=== PATIENT | female | born 2000 | race Caucasian/White ===

== ENCOUNTER 2020-12-27 10:15 | Inpatient (IN) | payer OTHER ==
[~2020-12-27] VITALS: Ht 157.5 cm; Wt 75.6 kg
[2020-12-27] VITALS (13 sets, daily range): BP systolic 104–138; BP diastolic 51–81
[~2020-12-27 10:15] MED LIST: VENLAFAXINE **XR** 75MG CAPSULE PO SCH
[2020-12-27] MEDS ORDERED: LIDOCAINE 1% MDV 20ML VIAL INFIL PRN (10:35)
[2020-12-27] MEDS ORDERED: RHOGAM 300 MCG (1500 IU) INJ (J2790) IM SCH (10:35)
[2020-12-27] MEDS ORDERED: OXYTOCIN DRIP 30 UNITS in IV 1 EA IV PRN (10:35)
[2020-12-27] MEDS ORDERED: VENL75CA2 PO (10:43)
[2020-12-27] MEDS ORDERED: PRENTAB9 PO (10:43)
[2020-12-27] MEDS ORDERED: QUET100T2 PO (10:43)
[2020-12-27 11:12] LABS: BASO % 0.2 % (0.0-1.0); EOS % 0.3 % (0.0-3.0); HEMATOCRIT 33.1 % (36.0-47.0); HEMOGLOBIN 11.2 g/dl (12.0-15.5); LYMPH # 2.7 10^3/uL (1.5-5.0); LYMPH % 22.3 % (24.0-44.0); MEAN CORPUSCULAR HEMOGLOBIN 31.1 pg (27.0-33.0); MEAN CORPUSCULAR HGB CONC 33.8 g/dl (32.0-36.5); MEAN CORPUSCULAR VOLUME 91.9 fl (80.0-96.0); MONO # 0.7 10^3/uL (0.0-0.8); MONO % 5.5 % (2.0-8.0); NEUTROPHILS # 8.6 10^3/uL (1.5-8.5); NEUTROPHILS % 71.2 % (36.0-66.0); PLATELET COUNT, AUTOMATED 232 10^3/uL (150-450)
[2020-12-27 11:38] LABS: THYROXINE (T4) 13.2 UG/DL (4.5-12.0)
[2020-12-27] MEDS ORDERED: PROMETHAZINE INJ 25 MG/ML VIAL (J2550) IV PRN (12:20)
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
[2020-12-27 13:39] LABS: AMPHETAMINES URINE REFLEX NEGATIVE (NEGATIVE); BARBITURATES URINE REFLEX NEGATIVE (NEGATIVE); BENZODIAZEPINES URINE REFLEX NEGATIVE (NEGATIVE); CANNABINOIDS URINE REFLEX NEGATIVE (NEGATIVE); COCAINE METABOLITE URINE REFLE NEGATIVE (NEGATIVE); METHADONE URINE REFLEX NEGATIVE (NEGATIVE); OPIATES URINE REFLEX NEGATIVE (NEGATIVE); PHENCYCLIDINE URINE REFLEX NEGATIVE (NEGATIVE)
[2020-12-27] MEDS: QUEtiapine FUMARATE 100 MG TAB PO SCH (22:09)
[2020-12-28] VITALS (21 sets, daily range): BP systolic 101–213; BP diastolic 55–77
--- NOTE | 2020-12-28 09:00 | IPNPDOC ---
Text Note Date of Service The patient was seen on 12/28/20. NOTE Patient seen this AM. Laina reports feeling well. She has minimal cramping. She is tolerating a regular diet with minimal nausea. She denies any fevers/chills, SOB, chest pain, dysuria, or vomiting. She had some nausea last night that resolved with phenergan. Vitals - VSS, afebrile, normotensive, non tachycardic General - AAOX3, sitting up in bed, pleasant and conversant, NAD Extremities - No edema Pelvic - deferred. Continue with cytotec dosing as prescribed. Will place next dose vaginally at ~1200. All patient questions answered. Den Quigley, I+O Den MARIA, I+O Laboratory Tests 12/27/20 10:50 Vital Signs Date Time Temp Pulse Resp B/P (MAP) Pulse Ox O2 Delivery O2 Flow Rate FiO2 12/28/20 08:16 96.8 89 16 117/55 (75) Room Air ZOILA HUFF DO Dec 28, 2020 09:00
[2020-12-28] MEDS: ACETAMINOPHEN 500 MG TAB PO PRN ×2 (11:06→19:07)
--- NOTE | 2020-12-28 11:07 | IPNPDOC ---
Text Note Date of Service The patient was seen on 12/28/20. NOTE Laina reports feeling well. Denies bleeding, cramping, fevers/chills, n/v. Chaperoned by RN Vitals - VSS, afebrile, normotensive, non tachycardic General - AAOX3, sitting up in bed, NAD Pelvic - Normal external genitalia. Cervix cl/thick/high, posterior. 400mcg misoprostol placed vaginally in the posterior fornix. Minimal progress thus far. Continue current management. All questions answered. Edward MARIA,Den, I+O VS, Den, I+O Vital Signs Date Time Temp Pulse Resp B/P (MAP) Pulse Ox O2 Delivery O2 Flow Rate FiO2 12/28/20 11:02 98.3 86 16 115/70 (85) Room Air ZOILA HUFF DO Dec 28, 2020 11:07
[2020-12-28] MEDS: VENLAFAXINE **XR** 75MG CAPSULE PO SCH (12:31)
--- NOTE | 2020-12-28 16:46 | IPNPDOC ---
Text Note Date of Service The patient was seen on 12/28/20. NOTE Presented to room for assessment of progress. Laina reports feeling well and denies any complaints. She is ambulating, voiding, tolerating a regular diet, and denies any n/v, fevers/chills, or pain. Chaperoned by RN Vitals - VSS, afebrile, normotensive, non tachycardic Cervix: cl/thick/high, posterior. 800mcg PV misoprostol placed in posterior fornix. Laina continues to feel well. Cervix remains closed and firm. If there is no response after this last dose, may consider laminaria placement. All patient questions answered. Edward VS,Den, I+O VS, Den, I+O Vital Signs Date Time Temp Pulse Resp B/P (MAP) Pulse Ox O2 Delivery O2 Flow Rate FiO2 12/28/20 11:56 86 102/58 (73) 12/28/20 11:02 98.3 16 Room Air ZOILA HUFF DO Dec 28, 2020 16:46
[2020-12-28] MEDS: QUEtiapine FUMARATE 100 MG TAB PO SCH (22:01)
[2020-12-28] MEDS: BUTORPHANOL 2 MG/ML INJ (J0595) IV PRN (22:01)
[2020-12-28] MEDS: LR 1,000 ML IV SCH (22:22)
[2020-12-29] VITALS (49 sets, daily range): BP systolic 84–135; BP diastolic 51–81
[2020-12-29] MEDS: BUTORPHANOL 2 MG/ML INJ (J0595) IV PRN ×2 (03:20→07:23)
[2020-12-29] MEDS: LR 1,000 ML IV SCH ×3 (06:08→15:09)
[2020-12-29 06:58] LABS: HEMATOCRIT 35.2 % (36.0-47.0); HEMOGLOBIN 11.6 g/dl (12.0-15.5); MEAN CORPUSCULAR VOLUME 94.1 fl (80.0-96.0); PLATELET COUNT, AUTOMATED 218 10^3/uL (150-450); RED BLOOD COUNT 3.74 10^6/uL (4.00-5.40); WHITE BLOOD COUNT 20.4 10^3/uL (4.0-10.0)
[2020-12-29] MEDS ORDERED: KETOROLAC 30 MG/ML 1ML VIAL IV SCH (09:00)
[2020-12-29] MEDS: VENLAFAXINE **XR** 75MG CAPSULE PO SCH (09:03)
[2020-12-29] MEDS ORDERED: FENTANYL 2MCG/ML ROPIVACAINE 0.2% IN 0.9% NACL 100ML IVBAG As Ordered ONE (09:36)
--- NOTE | 2020-12-29 09:36 | IPNPDOC ---
Obstetrical Progress Note Date of Service Dec 29, 2020 Subjective 20 yo at 20w2d admitted for IUFD. She reports that she is starting to feel more contractions and cramping. Dr. Sweeney is also at the bedside as we discussed that plan with the patient and her family. Cervical exam remains thick, firm, closed, and posterior. Recommended for placing laminaria with vaginal packing and continuing cytotec. Discussed options for pain management WEB PROGRAMMER pump versus epidural and recommended to discuss these options further with anesthesia. She has no further concerns or complaints at this time. All questions were answered. Objective Vital Signs Date Time Temp Pulse Resp B/P (MAP) Pulse Ox O2 Delivery O2 Flow Rate FiO2 12/29/20 07:50 14 12/29/20 07:09 98.0 72 104/56 (72) 12/28/20 22:01 Room Air Cervical exam closed, long, thick, high, and posterior 3 laminaria were placed within the cervical os, 2 size medium and 1 size small at 0850. Vaginal packing was placed. Patient tolerated procedure well. Assessment and Plan Additional Comments Consultation was given with Dr. Snow, who recommended for continuing cytotec with laminaria. Dr. Sweeney recommends for IV toradol, as an adjunct to IV pain medication. Recommended for patient to have consultation with anesthesia regarding pain options: WEB PROGRAMMER pump versus epidural Dr. Sweeney was at the bedside to further discuss plan with patient for possible D&E procedure. All questions were answered. MARCUS LAMBERT CNM Dec 29, 2020 09:01
[2020-12-29] MEDS ORDERED: diphenhydrAMINE 50MG/ML VIAL (J1200) IV PRN (10:05)
[2020-12-29] MEDS ORDERED: EPIDURAL/PCA KEYS XX PRN (10:05)
[2020-12-29] MEDS ORDERED: ePHEDrine SULFATE 25 MG/5 ML(5MG/ML) SYRINGE IV PRN (10:05)
[2020-12-29] MEDS ORDERED: EPIDURAL COMMENT XX SCH (10:05)
[2020-12-29] MEDS ORDERED: ONDANSETRON 4MG/2ML VIAL IV PRN (10:05)
[2020-12-29] MEDS ORDERED: NALOXONE INJ 0.4MG/1ML VIAL (J2310 PER 1MG) IV PRN (10:05)
[2020-12-29] MEDS ORDERED: LACTATED RINGER'S 1000 ML IV PRN (10:05)
[2020-12-29] MEDS ORDERED: FENTANYL/ROPIVACAINE/NACL BAG 100 ML EPIDURAL SCH (10:05)
[2020-12-29] MEDS ORDERED: REFRIGERATOR IV KEYS XX PRN (10:05)
[2020-12-29] MEDS ORDERED: ACETAMINOPHEN 500 MG TAB PO PRN (16:45)
[2020-12-29] MEDS ORDERED: IBUPROFEN 800 MG TAB PO PRN (16:45)
[2020-12-29] MEDS ORDERED: DIBUCAINE 1% OINTMENT 30GM TOP PRN (16:45)
[2020-12-29] MEDS ORDERED: IBUPROFEN 600MG TAB PO PRN (16:45)
[2020-12-29] MEDS ORDERED: ACETAMINOPHEN TAB 650MG DOSE (2X325MG) PO PRN (16:45)
[2020-12-29] MEDS ORDERED: DOCUSATE SODIUM 100MG CAPSULE PO PRN (16:45)
--- NOTE | 2020-12-29 17:05 | DNPDOC ---
[facility] Delivery Note Delivery Note DATE OF DELIVERY: 12/29/20 PREDELIVERY DIAGNOSIS: demise POST DELIVERY DIAGNOSIS: Delivered. PROCEDURE: Induction of labor with cytotec and lamineria. Vaginal delivery. Placental biopsy. COLLEGE BASKETBALL COACH: Dr. Corey Aguilera DO ANESTHESIA: Epidural. ESTIMATED BLOOD LOSS: 50 mL. FINDINGS: grossly normal second trimester appearing fetus with exception of abnormal calvarium contour. Amniotic fluid had brown tinge. Grossly normal second trimester appearing placenta and cord. DELIVERY SUMMARY: Patient was examined to determine progress after approx 8h of lamineria placement. On exam it was noted that amniotic membranes were protruding into the vagina, the lamineria was displaced, and parts were palpable. The lamineria was removed and counted and was consistent with the 3 sticks placed. The membranes were ruptured and brown fluid was noted. The patient pushed and the baby was delivered in-tact. The cord was clamped and cut. On examination the baby was a grossly normal second trimester appearing fetus with exception of abnormal calvarium contour. The placenta was palpated in the vagina and delivered with patient pushing. Grossly normal second trimester appearing placenta and cord was noted. Pitocin was administered and vaginal bleeding was scant. There were no lacerations. A placenta biopsy was performed adjacent to the umbilical cord and sent for microarray. The fetus was sent for gross analysis without autopsy. The placenta was sent for pathology. The sponge, lap and needle counts were correct. There were no complications. COREY AGUILERA DO Dec 29, 2020 17:05
--- NOTE | 2020-12-29 19:44 | OBDS ---
[facility] Obstetrical Discharge Sum. Obstetrical Discharge Summary Date: Dec 29, 2020 A/P, Post Course List any complications Ms. Mcintosh is a 20 yo at 20+0 weeks gestation by last menstrual period consistent with a 9+2 week ultrasound who was diagnosed with a demise earlier this week when heart tones could not be found during a routine appointment. A subsequent formal obstetric ultrasound on 25Dec2020 confirmed fe marva demise, with her fetus measuring 17+1 weeks gestation by composite measurements. She was induced with lamineria and cytotec and delivered a grossly normal second trimester appearing fetus with exception of irregularities of the calvarium. The placenta also appeared normal but the amniotic fluid was notably discolored. Per the wishes of Ms. Mcintosh and her placenta biopsy was taken and sent for microarray and the fetus sent for gross pathology without autopsy. She also made arrangements with bereavement services for transport of the baby following pathologic analysis. Ms. Mcintosh was evaluated for potential causes of demise and was found to have a normal CBC, urine drug screen, hepatitis B, and syphillis screening. Her antiphospholipid antibody and parvovirus testing remained pending on discharge. She did have an elevated T4 but her TSH was normal. On discharge she had scant vaginal bleeding, was tolerating solids, voiding spontaneously, and her pain was well controlled. She had no signs or symptoms of infection. She was educated on routine return precautions. At her follow up appointment I plan to repeat her TSH and T4 testing and treat as appropriate. FREIDA AGUILERA DO Dec 29, 2020 19:44
[2020-12-30] MEDS ORDERED: PRENATAL VITAMINS CHEWABLE TABLET PO SCH (09:00)
[2020-12-31 11:39] LABS: DRVV SCREEN 49.6 SEC
[2020-12-31 11:42] LABS: PTT LUPUS TYPE ANTICOAG SCREEN 1.3 (0-1.2)
[2020-12-31 11:50] LABS: DRVV CONFIRM 37.7 SEC; LUPUS CONFIRM RATIO 1.1
[2020-12-31 11:51] LABS: NORMALIZED RATIO 1.18 (0.00-1.20)
[2021-01-01 04:07] LABS: ANTI PARVO VIRUS LEVEL IGG 5.8 index (0.0-0.8); ANTI PARVO VIRUS LEVEL IgM 0.1 index (0.0-0.8); BETA-2 GLYCOPROTEIN I ABY IGA <9 (0-25); BETA-2 GLYCOPROTEIN I ABY IGG <9 (0-20); BETA-2 GLYCOPROTEIN I ABY IGM <9 (0-32); CARDIOLIPIN IGA ANTIBODY <9 APL U/mL (0-11); CARDIOLIPIN IGG ANTIBODY <9 GPL U/mL (0-14); CARDIOLIPIN IGM ANTIBODY <9 MPL U/mL (0-12)
== END 2020-12-29 21:00 | disposition home or self-care (01) | DRG 779 ==
LOC: M LDI 10:15
PROVIDERS: ADMIT Obstetrics & Gynecology; ATTEND Obstetrics & Gynecology
PROC: 3E0P7GC Introduction of Other Therapeutic Substance into Female Reproductive, Via Natural or Artificial Opening (ICD-10-PCS; principal; 2020-12-27)
DX: O02.1 Missed abortion (principal); Z3A.20 20 weeks gestation of pregnancy

== ENCOUNTER 2020-12-31 11:44 | Emergency (ER) | payer OTHER ==
[~2020-12-31] VITALS: Ht 154.9 cm; Wt 72.7 kg
[~2020-12-31 11:44] MED LIST changes: +PRENTAB9 PO; +QUET100T2 PO; +VENL75CA2 PO; -VENLAFAXINE **XR** 75MG CAPSULE PO SCH
[2020-12-31 13:07] LABS: BASO % 0.2 % (0.0-1.0); EOS # 0.1 10^3/uL (0.0-0.5); EOS % 0.4 % (0.0-3.0); HEMATOCRIT 36.4 % (36.0-47.0); HEMOGLOBIN 12.2 g/dl (12.0-15.5); LYMPH # 1.7 10^3/uL (1.5-5.0); LYMPH % 12.4 % (24.0-44.0); MEAN CORPUSCULAR HEMOGLOBIN 31.5 pg (27.0-33.0); MEAN CORPUSCULAR HGB CONC 33.5 g/dl (32.0-36.5); MEAN CORPUSCULAR VOLUME 94.1 fl (80.0-96.0); MONO # 0.7 10^3/uL (0.0-0.8); MONO % 5.2 % (2.0-8.0); NEUTROPHILS % 80.9 % (36.0-66.0); PLATELET COUNT, AUTOMATED 244 10^3/uL (150-450); RED BLOOD COUNT 3.87 10^6/uL (4.00-5.40); WHITE BLOOD COUNT 13.6 10^3/uL (4.0-10.0)
[2020-12-31 13:29] LABS: BLOOD UREA NITROGEN 6 MG/DL (7-18); CALCIUM LEVEL 8.7 MG/DL (8.5-10.1); CARBON DIOXIDE LEVEL 25 MEQ/L (21-32); CHLORIDE LEVEL 108 MEQ/L (98-107); CREATININE FOR GFR 0.53 MG/DL (0.55-1.30); GLOMERULAR FILTRATION RATE > 60.0 (>60); GLUCOSE, FASTING 79 MG/DL (70-100); POTASSIUM SERUM 3.7 MEQ/L (3.5-5.1); SODIUM LEVEL 143 MEQ/L (136-145)
[2020-12-31] MEDS ORDERED: METHYLERGONOVINE MALEATE 0.2 MG TAB PO ONE (15:00)
[2020-12-31] MEDS ORDERED: METH0.2T53 PO (15:01)
[2020-12-31] MEDS ORDERED: DOXY1CAP62 PO (15:01)
[2020-12-31 15:39] VITALS: BP 126/75
--- NOTE | 2020-12-31 16:07 | IPNPDOC ---
Text Note Date of Service The patient was seen on 12/31/20. NOTE 20 yo s/p uncomplicated of 17 week demise on Tuesday presented to the ER today after passing a clot at home and then noticing a large protrusion of "tissue" coming from her vagina. She denies any fevers at home. She has been eating and drinking without difficulty. She has had mild cramping but no severe pain. She also denies any dysuria, vomiting, diarrhea, or constipation. Chaperoned by CASHIER GREETER Vitals - Vitals stable. HR 100s, afebrile, normotensive General - AAOX3, sitting up in bed, pleasant and conversant, NAD Abdomen - Uterine fundus firm at U-3. No fundal tenderness Pelvic - Tissue protruding from the vagina. Removed with ring forceps. No active bleeding. Sent to pathology review. A sterile speculum was then inserted into the vagina. Large amount of tissue protruding from the cervical os. This was also removed with ring forceps and sent to pathology for review. Cervix hemostatic after removal. Speculum removed. Bedside TAUS: EMS 1.4cm at thickest portion. No color flow or vascularity seen on US. No free pelvic fluid or adnexal abnormalities. Labs: 13.6>12.2/36.4<244 WBC count decreased from 20.1 on 28Dec2020 from pre delivery. Likely retained placental fragment. No evidence of further retained products on bedside TAUS. No active bleeding. No evidence of infection. Will follow up on pathology of tissue removed. Will give prophylactic course of doxycycline and methergine series. She will follow up in the office with me on Tuesday. Return to care sooner for fevers/chills, SOB, chest pain, dysuria, heavy vaginal bleeding, or any other urgent concerns. All questions answered. 40 minutes of patient care DO CROW Darnell Fishbone, I+O Den MARIA, I+O Laboratory Tests 12/31/20 12:40 Vital Signs Date Time Temp Pulse Resp B/P (MAP) Pulse Ox O2 Delivery O2 Flow Rate FiO2 12/31/20 15:39 98.1 117 17 126/75 (92) 98 Room Air ZOILA HUFF DO Dec 31, 2020 16:07
--- NOTE | 2021-01-01 07:18 | ECGEPIP ---
[facility] - ED Test Date: 2020-12-31 Pat Name: COURTNEY BLISS Department: Room: - Gender: Female Director Learning: BARBARA : 2000 Requested By: Jill Reynoso Order Number: [id number] Reading MD: Bi Encarnacion Measurements Intervals Castell Rate: 83 P: 8 TN: 126 QRS: 72 QRSD: 76 T: 18 QT: 348 QTc: 408 Interpretive Statements Normal sinus rhythm POOR R WAVE PROGRESSION NONSPECIFIC T WAVE ABNORMALITY(S) NO PRIORS FOR COMPARISON Electronically Signed on 01-01-2021 7:18:27 EDT by Bi Encarnacion
== END 2020-12-31 15:42 | disposition home or self-care (01) ==
LOC: M ED 11:44
DX: O73.1 Retained portions of placenta and membranes, without hemorrhage (principal); F41.9 Anxiety disorder, unspecified; F33.9 Major depressive disorder, recurrent, unspecified; F17.200 Nicotine dependence, unspecified, uncomplicated; Z79.899 Other long term (current) drug therapy; Z88.8 Allergy status to other drugs, medicaments and biological substances

== ENCOUNTER 2021-03-04 22:30 | Observation (INO) | payer OTHER ==
[~2021-03-04] VITALS: Ht 157.5 cm; Wt 75.4 kg
[~2021-03-04 22:30] MED LIST changes: +DOXY1CAP62 PO; +METH0.2T53 PO
[2021-03-04 23:14] LABS: HEMATOCRIT 39.7 % (36.0-47.0); HEMOGLOBIN 13.1 g/dl (12.0-15.5); MEAN CORPUSCULAR HEMOGLOBIN 30.1 pg (27.0-33.0); MEAN CORPUSCULAR VOLUME 91.3 fl (80.0-96.0); PLATELET COUNT, AUTOMATED 318 10^3/uL (150-450); RED BLOOD COUNT 4.35 10^6/uL (4.00-5.40)
[2021-03-04] MEDS ORDERED: CHARCOAL ACTIVATED LIQUID 25 GM/120 ML BTL PO ONE (23:15)
[2021-03-04] MEDS ORDERED: ONDANSETRON 4MG/2ML VIAL IV ONE (23:15)
[2021-03-04] MEDS ORDERED: NS 1,000 ML IV ONE (23:15)
[2021-03-04 23:51] LABS: RSV AMPLIFICATION NEGATIVE (NEGATIVE)
--- NOTE | 2021-03-04 23:59 | HPEPDOC ---
[facility] Medical History & Physical Date of Admission Mar 04, 2021 Date of Service: Mar 04, 2021 History and Physical CHIEF COMPLAINT: Suicide attempt with drug overdose HISTORY OF PRESENT ILLNESS: 20-year-old female history of anxiety/depression, PTSD, previous suicide attempt, recent miscarriage comes emergency department due to suicide attempt by overdose on Effexor. Patient tells me that she has periods where she feels something takes control and made her take the pills. She says she feels better and that she doesn't want to . She tells me that her helped her home to try to vomit as much of the pills is possible she is not sure if she got everything. She is trying to take activated charcoal right now. She says that she has had previous suicide attempts the last time she tried to look into assisted suicide attempt to dehydrate herself by not drinking any fluids for 7 days. Hospital service was asked to admit the patient for observation on telemetry monitoring for 12 hours until patient is able to be admitted to the inpatient mental health unit. Patient denies any chest pain or shortness of br eath she denies any nausea or vomiting denies any fevers or chills denies abdominal pain tells me she feels back to her normal self now. PAST MEDICAL/SURGICAL HISTORY: History of suicide attempt Miscarriage December 2020 Anxiety/depression PTSD Right wrist surgery Right clavicle surgery SOCIAL HISTORY: Endorses drinking SOCIALLY Endorses using electronic cigarettes Endorses smoking cannabis after her miscarriage FAMILY HISTORY: Reviewed and none contributory to this admission ALLERGIES: Please see below. REVIEW OF SYSTEMS: 10 point review of systems complete all negative otherwise stated in HPI HOME MEDICATIONS: Please see below. PHYSICAL EXAMINATION: Constitutional: Awake and alert, in no apparent distress ENT: Sclera are clear. Mucosa is moist. Respiratory: Lungs CTA bilaterally. No respiratory distress. Cardiovascular: RRR S1 and S2 are normal, no murmur Gastrointestinal: Abdomen is soft, non distended, non tender, BS present. Musculoskeletal: No lower extremity edema. RUE 5/5, LUE 5/5, BLE 5/5 Neurologic: No focal neurological deficit. Mental Status: A&O x3, tearful Skin: No visible rashes LABORATORY DATA: See below. IMAGING: See chart MICROBIOLOGY: Please see below. ASSESSMENT # Suicide attempt by Effexor overdose PLAN Per recommendations from poison control admit patient for observation with telemetry monitoring until a transfer to the psychiatric unit tomorrow. Patient was ordered charcoal which she is currently taking. Effexor and Seroquel will be held and to be continued when deemed appropriate by psychiatry. Sitter ordered. Morning team to discuss with psychiatry tomorrow to facilitate transfer to inpatient mental health unit. A [facility] Hospitalist Vital Signs Vital Signs Date Time Temp Pulse Resp B/P (MAP) Pulse Ox O2 Delivery O2 Flow Rate FiO2 03/04/21 22:30 98.2 125 14 137/83 (101) 97 Room Air Laboratory Data Labs 24H Laboratory Tests 2 03/04/21 22:34: Nucleated Red Blood Cells % (auto) 0.0 03/04/21 22:53: Coronavirus (COVID-19)(PCR) NEGATIVE, Influenza Type A (RT-PCR) NEGATIVE, Influenza Type B (RT-PCR) NEGATIVE, Respiratory Syncytial Virus (PCR) NEGATIVE CBC/BMP Laboratory Tests 03/04/21 22:34 Home Medications Scheduled Quetiapine Fumarate (Quetiapine Fumarate) 100 Mg Tablet, 100 MG PO QHS Venlafaxine HCl (Venlafaxine HCl ER) 75 Mg Cap.er.24h, 75 MG PO BID Allergies Coded Allergies: bupropion (Verified Adverse Reaction, Severe, HALLUCINATIONS, 12/27/20) RIP BECKETT MD Mar 04, 2021 23:59
[2021-03-05 00:05] LABS: ACETAMINOPHEN LEVEL < 2.0 UG/ML (10.0-30.0); ALBUMIN 3.8 GM/DL (3.2-5.2); ALT/SGPT 21 U/L (12-78); BILIRUBIN,DIRECT < 0.1 MG/DL (0.0-0.2); BILIRUBIN,TOTAL 0.4 MG/DL (0.2-1.0); BLOOD UREA NITROGEN 8 MG/DL (7-18); CALCIUM LEVEL 9.1 MG/DL (8.5-10.1); CARBON DIOXIDE LEVEL 28 MEQ/L (21-32); CHLORIDE LEVEL 111 MEQ/L (98-107); CREATININE FOR GFR 0.76 MG/DL (0.55-1.30); ETHYL ALCOHOL (ETHANOL) 0.094 % (0.000-0.010); GLOMERULAR FILTRATION RATE > 60.0 (>60); GLUCOSE, FASTING 87 MG/DL (70-100); POTASSIUM SERUM 3.8 MEQ/L (3.5-5.1); SALICYLATE LEVEL < 1.7 MG/DL (5.0-30.0); SODIUM LEVEL 144 MEQ/L (136-145); TOTAL PROTEIN 7.3 GM/DL (6.4-8.2)
[2021-03-05] MEDS ORDERED: VENL75CA2 PO (01:06)
[2021-03-05] MEDS ORDERED: QUET100T2 PO (01:06)
[2021-03-05] MEDS ORDERED: HOME MED LIST COMPLETE! XX SCH (01:10)
[2021-03-05 06:41] LABS: HEMATOCRIT 37.5 % (36.0-47.0); HEMOGLOBIN 12.3 g/dl (12.0-15.5); MEAN CORPUSCULAR HEMOGLOBIN 30.2 pg (27.0-33.0); MEAN CORPUSCULAR HGB CONC 32.8 g/dl (32.0-36.5); MEAN CORPUSCULAR VOLUME 92.1 fl (80.0-96.0); PLATELET COUNT, AUTOMATED 295 10^3/uL (150-450); RED BLOOD COUNT 4.07 10^6/uL (4.00-5.40); WHITE BLOOD COUNT 9.3 10^3/uL (4.0-10.0)
[2021-03-05 07:14] LABS: AMPHETAMINES LEVEL URINE NEGATIVE (NEGATIVE); BARBITURATES URINE NEGATIVE (NEGATIVE); BENZODIAZEPINES URINE NEGATIVE (NEGATIVE); CANNABINOIDS URINE POSITIVE (NEGATIVE); COCAINE METABOLITE URINE NEGATIVE (NEGATIVE); METHADONE URINE NEGATIVE (NEGATIVE); OPIATES URINE NEGATIVE (NEGATIVE); PHENCYCLIDINE URINE NEGATIVE (NEGATIVE)
[2021-03-05 07:17] LABS: ALBUMIN 3.3 GM/DL (3.2-5.2); ALT/SGPT 20 U/L (12-78); BILIRUBIN,TOTAL 0.5 MG/DL (0.2-1.0); BLOOD UREA NITROGEN 7 MG/DL (7-18); CALCIUM LEVEL 8.7 MG/DL (8.5-10.1); CARBON DIOXIDE LEVEL 23 MEQ/L (21-32); CHLORIDE LEVEL 113 MEQ/L (98-107); CREATININE FOR GFR 0.93 MG/DL (0.55-1.30); GLOMERULAR FILTRATION RATE > 60.0 (>60); GLUCOSE, FASTING 103 MG/DL (70-100); POTASSIUM SERUM 4.1 MEQ/L (3.5-5.1); SODIUM LEVEL 143 MEQ/L (136-145); TOTAL PROTEIN 6.7 GM/DL (6.4-8.2)
[2021-03-05 09:00] VITALS: BP 114/59
[2021-03-05] MEDS: ENOXAPARIN 40MG/0.4ML SYRINGE (J1650 PER 10MG) SC SCH (09:00)
--- NOTE | 2021-03-05 10:05 | IPN ---
PROGRESS NOTE DATE: 03/05/2021 SUBJECTIVE: Laina is seen on [address]. She spent 12 hours on TM and had no arrhythmias, she is now waiting for a Mental Health Unit bed. OBJECTIVE: GENERAL: She is resting comfortably, sleepy. HEART: Regular rhythm. ABDOMEN: Nontender. EXTREMITIES: No peripheral edema. NEUROLOGIC: Normal cranial nerve function and strength, and coordination. Telemetry with no arrhythmias. LABORATORY DATA: Lab work unremarkable. IMPRESSION: Suicide attempt by intentional overdose of Effexor. She is medically stable for inpatient Mental Health Unit. I have placed a consult for the covering psychiatrist. She could be transferred down whenever there is a bed available as she is currently medically stable.
[2021-03-05 14:00] VITALS: BP 106/56
[2021-03-05 16:55] VITALS: BP 135/77
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
--- NOTE | 2021-03-05 18:53 | ECGEPIP ---
[facility] - ED Test Date: 2021-03-04 Pat Name: COURTNEY BLISS Department: Room: [place] [address] Gender: Female Boiler Room Operator: GERALDINE : 2000 Requested By: BERNARD AUGUSTIN Order Number: [id number] Reading MD: Jill Reynoso Measurements Intervals [place] Rate: 91 P: 43 MS: 140 QRS: 79 QRSD: 82 T: 30 QT: 326 QTc: 400 Interpretive Statements Normal sinus rhythm with sinus arrhythmia increased rate 12/31/20 Electronically Signed on 03-05-2021 18:53:17 EDT by Jill Reynoso
[2021-03-05 20:05] VITALS: BP 119/72
[2021-03-05 21:15] VITALS: O2SAT 95
[2021-03-06 06:00] VITALS: BP 115/51
[2021-03-06] MEDS: ENOXAPARIN 40MG/0.4ML SYRINGE (J1650 PER 10MG) SC SCH (08:05)
--- NOTE | 2021-03-06 09:37 | DSES ---
DISCHARGE SUMMARY DATE OF ADMISSION: 03/04/2021 DATE OF DISCHARGE: / / PRINCIPAL DIAGNOSIS: Intentional overdose of Effexor. HISTORY: Patient was admitted to the Hospitalist Service. She took an intentional overdose of Effexor. HOSPITAL COURSE: She was on telemetry for an appropriate length of time with no arrhythmias and placed on med/surg bed. She is supposed to be going to the Inpatient Mental Health Unit, but there are currently no beds. She was seen by Dr. Russell of Psychiatry who agreed with need for inpatient mental health for depressive disorder, recurrent, severe with psychotic features as well as posttraumatic stress disorder, possible borderline personality disorder. CURRENT MEDICATIONS: Lovenox 40 mg subcu. LABORATORY DATA: CBC is normal today as are the electrolytes. DISPOSITION: She should be discharged to an Inpatient Mental Unit bed. Her Lovenox can be discontinued on discharge. Psychiatric medications per Psychiatry Service.
== END 2021-03-06 11:50 ==
LOC: M ED 22:30 → M ED INP 22:31 → INTOOBSV 22:31 → M MS5PR 03-05 09:00
PROVIDERS: ADMIT Family Medicine; ATTEND Family Medicine
DX: F32.3 Major depressive disorder, single episode, severe with psychotic features (principal); F43.10 Post-traumatic stress disorder, unspecified; F60.9 Personality disorder, unspecified; Z91.5 Personal history of self-harm; Z79.899 Other long term (current) drug therapy; Z88.8 Allergy status to other drugs, medicaments and biological substances; F17.290 Nicotine dependence, other tobacco product, uncomplicated
CPT/HCPCS: 36415; 80048; 80053; 80076; 80143; 80307; 82077; 84443; 85027; 87631; 93005; 96361; 96374; 99285; J2405

== ENCOUNTER 2021-03-06 11:21 | Inpatient (IN) | payer OTHER ==
[~2021-03-06] VITALS: Ht 157.5 cm; Wt 75.4 kg
[~2021-03-06 11:21] MED LIST changes: +DOXY-443 PO; -DOXY1CAP62 PO
[2021-03-06] MEDS ORDERED: ACETAMINOPHEN TAB 650MG DOSE (2X325MG) PO PRN (11:30)
[2021-03-06] MEDS ORDERED: MOM 30ML SUSPENSION UDC PO PRN (11:30)
[2021-03-06] MEDS ORDERED: MAALOX 30 ML SUSP *UDC PO PRN (11:30)
[2021-03-06 11:58] VITALS: BP 131/68
[2021-03-07 06:33] VITALS: BP 129/73
[2021-03-07] MEDS ORDERED: VENLAFAXINE **XR** 75MG CAPSULE PO SCH (09:00)
[2021-03-07 16:17] VITALS: BP 143/81
[2021-03-07] MEDS: NICOTINE 14 MG/24 HR TRANSDERMAL TD SCH (16:44)
[2021-03-07] MEDS: traZODone 50 MG TAB PO PRN (20:10)
[2021-03-07] MEDS: lamoTRIgine 25MG TAB PO SCH (20:10)
[2021-03-08 06:41] VITALS: BP 107/60
[2021-03-08] MEDS: NICOTINE 14 MG/24 HR TRANSDERMAL TD SCH (08:04)
[2021-03-08] MEDS: VENLAFAXINE **XR** 75MG CAPSULE PO SCH (09:52)
[2021-03-08 19:00] VITALS: BP 143/64
[2021-03-08] MEDS: PRAZOSIN 1 MG CAP PO SCH (20:15)
[2021-03-08] MEDS: lamoTRIgine 25MG TAB PO SCH (20:15)
[2021-03-08] MEDS: traZODone 50 MG TAB PO PRN (20:15)
[2021-03-09 06:11] VITALS: BP 129/60
[2021-03-09] MEDS: NICOTINE 14 MG/24 HR TRANSDERMAL TD SCH (08:20)
[2021-03-09] MEDS: VENLAFAXINE **XR** 75MG CAPSULE PO SCH (08:20)
[2021-03-09] MEDS ORDERED: PILL CUTTER 1 EACH XX PRN (09:30)
[2021-03-09 16:27] VITALS: BP 134/84
[2021-03-09] MEDS: ARIPiprazole 15 MG TAB (AbiLIFY) PO SCH (20:59)
[2021-03-09] MEDS: PRAZOSIN 1 MG CAP PO SCH (20:59)
[2021-03-09] MEDS: lamoTRIgine 25MG TAB PO SCH (20:59)
[2021-03-09] MEDS: traZODone 50 MG TAB PO PRN (21:00)
[2021-03-10 05:47] VITALS: BP 106/63
[2021-03-10 07:50] LABS: CHOLESTEROL RISK RATIO 2.964 (<5)
[2021-03-10] MEDS: VENLAFAXINE **XR** 75MG CAPSULE PO SCH (08:02)
[2021-03-10] MEDS: NICOTINE 14 MG/24 HR TRANSDERMAL TD SCH (08:04)
[2021-03-10 10:28] LABS: HEMOGLOBIN A1c 5.1 %
[2021-03-10 18:53] VITALS: BP 131/72
[2021-03-10] MEDS: traZODone 50 MG TAB PO PRN (20:17)
[2021-03-10 20:18] VITALS: BP 130/74
[2021-03-10] MEDS: PRAZOSIN 1 MG CAP PO SCH (20:18)
[2021-03-10] MEDS: ARIPiprazole 15 MG TAB (AbiLIFY) PO SCH (20:18)
[2021-03-10] MEDS: lamoTRIgine 25MG TAB PO SCH (20:19)
[2021-03-11 06:04] VITALS: BP 96/55
[2021-03-11] MEDS: NICOTINE 14 MG/24 HR TRANSDERMAL TD SCH (08:12)
[2021-03-11] MEDS: VENLAFAXINE **XR** 75MG CAPSULE PO SCH (08:12)
[2021-03-11] MEDS ORDERED: MINI1CAP PO (11:32)
[2021-03-11] MEDS ORDERED: TRAZ-252 PO (11:32)
[2021-03-11] MEDS ORDERED: ABIL1TAB12 PO (11:32)
[2021-03-11] MEDS ORDERED: NICO14PA TD (11:32)
[2021-03-11] MEDS ORDERED: VENL75CA47 PO (11:32)
[2021-03-11] MEDS ORDERED: LAMI25TA PO (11:32)
[2021-03-11] MEDS ORDERED: Pill Cutter XX (11:32)
== END 2021-03-11 12:20 | disposition home or self-care (01) | DRG 883 ==
LOC: M PSY 11:44
PROVIDERS: ADMIT Student in an Organized Health Care Education/Training Program; ATTEND Student in an Organized Health Care Education/Training Program
DX: F60.3 Borderline personality disorder (principal); R45.851 Suicidal ideations; F31.9 Bipolar disorder, unspecified; F43.10 Post-traumatic stress disorder, unspecified; F12.10 Cannabis abuse, uncomplicated; F40.01 Agoraphobia with panic disorder; F41.9 Anxiety disorder, unspecified; N94.6 Dysmenorrhea, unspecified; F17.210 Nicotine dependence, cigarettes, uncomplicated; Z91.14 Patient's other noncompliance with medication regimen; Z63.4 Disappearance and death of family member

== ENCOUNTER 2021-08-06 12:28 | Emergency (ER) | payer OTHER ==
[~2021-08-06] VITALS: Ht 157.5 cm; Wt 79.2 kg
[~2021-08-06 12:28] MED LIST changes: +ABIL1TAB12 PO; +LAMI25TA PO; +MINI1CAP PO; +NICO14PA TD; +Pill Cutter XX; +TRAZ-252 PO; +VENL75CA47 PO
[2021-08-06 12:29] VITALS: BP 120/85
[2021-08-06] MEDS ORDERED: ESCI5SOL3 PO (12:42)
[2021-08-06] MEDS ORDERED: LATU1TAB PO (12:42)
[2021-08-06] MEDS ORDERED: ACETAMINOPHEN 325 MG TAB PO ONE (15:25)
[2021-08-06 18:27] LABS: GC DNA AMPLIFICATION NEGATIVE (NEGATIVE)
== END 2021-08-06 18:18 | disposition home or self-care (01) ==
LOC: M ED 12:28
DX: O99.891 Other specified diseases and conditions complicating pregnancy (principal); R30.0 Dysuria; Z3A.14 14 weeks gestation of pregnancy; Z88.8 Allergy status to other drugs, medicaments and biological substances

== ENCOUNTER 2022-01-21 07:30 | Outpatient (CLI) | payer OTHER ==
[~2022-01-21] VITALS: Ht 154.9 cm; Wt 93.9 kg
[~2022-01-21 07:30] MED LIST changes: +ESCI5SOL3 PO; +LATU1TAB PO
[2022-01-21 08:08] VITALS: BP 129/88
[2022-01-21] MEDS ORDERED: VITA500C24 PO (08:12)
[2022-01-21] MEDS ORDERED: PRENTAB9 PO (08:12)
[2022-01-21] MEDS ORDERED: FERR325T3 PO (08:12)
[2022-01-21] MEDS ORDERED: COLA100C5 PO (08:14)
[2022-01-21] MEDS ORDERED: TUMS750C5 PO (08:14)
[2022-01-21] MEDS ORDERED: HOME MED LIST COMPLETE! XX SCH (08:15)
[2022-01-21 08:40] VITALS: BP 147/82
[2022-01-21 08:41] VITALS: BP 113/68
== END 2022-01-21 08:57 | disposition home or self-care (01) ==
LOC: M LDO 07:30
PROVIDERS: ATTEND Obstetrics & Gynecology
DX: O32.1XX0 Maternal care for breech presentation, not applicable or unspecified (principal); Z3A.37 37 weeks gestation of pregnancy
CPT/HCPCS: 59025; 76815; G0463

== ENCOUNTER 2022-02-10 11:30 | Outpatient (CLI) | payer OTHER ==
[~2022-02-10] VITALS: Ht 154.9 cm; Wt 94.9 kg
[~2022-02-10 11:30] MED LIST changes: +COLA100C5 PO; +FERR325T3 PO; +TUMS750C5 PO; +VITA500C24 PO
[2022-02-10 11:52] VITALS: BP 113/68
[2022-02-10] MEDS ORDERED: LATU20TA PO (11:58)
== END 2022-02-10 12:45 | disposition home or self-care (01) ==
LOC: M LDO 11:30
PROVIDERS: ATTEND Obstetrics & Gynecology
DX: O47.1 False labor at or after 37 completed weeks of gestation (principal); Z3A.40 40 weeks gestation of pregnancy; Z88.6 Allergy status to analgesic agent
CPT/HCPCS: 59025; G0463

== ENCOUNTER 2022-02-10 15:37 | Inpatient (IN) | payer OTHER ==
[~2022-02-10] VITALS: Ht 154.9 cm; Wt 94.9 kg
[2022-02-10] VITALS (32 sets, daily range): BP systolic 96–146; BP diastolic 52–77
[~2022-02-10 15:37] MED LIST changes: +LATU20TA PO
[2022-02-10] MEDS ORDERED: HOME MED LIST COMPLETE! XX SCH (15:55)
[2022-02-10] MEDS ORDERED: LACTATED RINGER'S 1000 ML IV STA (16:21)
[2022-02-10] MEDS ORDERED: TRANEXAMIC ACID INJection 1,000 MG in NS 100 ML IV PRN (16:25)
[2022-02-10] MEDS ORDERED: METHYLERGONOVINE MALEATE 0.2 MG/ML VIAL (J2210) IM PRN (16:25)
[2022-02-10] MEDS ORDERED: OXYTOCIN DRIP 30 UNITS in IV 1 EA IV PRN ×4 (16:25)
[2022-02-10] MEDS ORDERED: LIDOCAINE 1% MDV 20ML VIAL INFIL PRN (16:25)
[2022-02-10] MEDS: LR 1,000 ML IV SCH ×2 (16:43→21:46)
[2022-02-10 17:04] LABS: HEMATOCRIT 35.3 % (36.0-47.0); HEMOGLOBIN 11.8 g/dl (12.0-15.5); MEAN CORPUSCULAR HEMOGLOBIN 29.7 pg (27.0-33.0); MEAN CORPUSCULAR HGB CONC 33.4 g/dl (32.0-36.5); MEAN CORPUSCULAR VOLUME 88.9 fl (80.0-96.0); PLATELET COUNT, AUTOMATED 227 10^3/uL (150-450); RED BLOOD COUNT 3.97 10^6/uL (4.00-5.40)
[2022-02-10] MEDS ORDERED: FENTANYL 2MCG/ML ROPIVACAINE 0.2% IN 0.9% NACL 100ML IVBAG As Ordered ONE (17:06)
[2022-02-10] MEDS ORDERED: LR 500 ML IV PRN (19:05)
[2022-02-10] MEDS ORDERED: NALOXONE INJ 0.4MG/1ML VIAL (J2310 PER 1MG) IV PRN (19:05)
[2022-02-10] MEDS ORDERED: EPIDURAL/PCA KEYS XX PRN (19:05)
[2022-02-10] MEDS ORDERED: ONDANSETRON 4MG 2ML VIAL IV PRN (19:05)
[2022-02-10] MEDS ORDERED: diphenhydrAMINE 50MG/ML VIAL (J1200) IV PRN (19:05)
[2022-02-10] MEDS ORDERED: ePHEDrine SULFATE 25 MG/5 ML(5MG/ML) SYRINGE IVP PRN (19:05)
[2022-02-10] MEDS: FENTANYL/ROPIVACAINE/NACL BAG 100 ML EPIDURAL SCH (19:07)
[2022-02-11] VITALS (39 sets, daily range): BP systolic 106–194; BP diastolic 56–99
[2022-02-11] MEDS: FENTANYL/ROPIVACAINE/NACL BAG 100 ML EPIDURAL SCH ×3 (02:23→13:59)
[2022-02-11] MEDS: LR 1,000 ML IV SCH (06:45)
[2022-02-11] MEDS ORDERED: ACETAMINOPHEN 500 MG TAB PO ONE (10:15)
[2022-02-11] MEDS ORDERED: OXYTOCIN DRIP 30 UNITS in IV 1 EA IV SCH ×2 (11:40→20:15)
[2022-02-11] MEDS ORDERED: LR 1,000 ML IV SCH ×2 (11:40→20:15)
[2022-02-11] MEDS: LURASIDONE 20 MG TAB (LATUDA) PO SCH (17:00)
[2022-02-11] MEDS ORDERED: OXYTOCIN INJ 10 UNITS/ML VIAL (J2590) IV ONE ×2 (18:20→20:15)
[2022-02-11] MEDS ORDERED: METHYLERGONOVINE MALEATE 0.2 MG/ML VIAL (J2210) IM PRN (20:15)
[2022-02-11] MEDS ORDERED: RHOGAM 300 MCG (1500 IU) INJ (J2790) IM SCH (20:15)
[2022-02-11] MEDS ORDERED: OXYTOCIN DRIP 30 UNITS in IV 1 EA IV ONE (20:15)
[2022-02-11] MEDS ORDERED: METHYLERGONOVINE MALEATE 0.2 MG TAB PO PRN (20:15)
[2022-02-11] MEDS ORDERED: ACETAMINOPHEN TAB 650MG DOSE (2X325MG) PO PRN (20:15)
[2022-02-11] MEDS ORDERED: MOM 30ML SUSPENSION UDC PO PRN (20:15)
[2022-02-11] MEDS ORDERED: IBUPROFEN 600MG TAB PO PRN (20:15)
[2022-02-11] MEDS ORDERED: TRANEXAMIC ACID INJection 1,000 MG in NS 100 ML IV ONE (20:15)
[2022-02-11] MEDS ORDERED: DIBUCAINE 1% OINTMENT 30GM TOP PRN (20:15)
[2022-02-11] MEDS ORDERED: METHYLERGONOVINE MALEATE 0.2 MG/ML VIAL (J2210) IM ONE (20:15)
[2022-02-11] MEDS ORDERED: ANUSOL HC CREAM 30GM TOP PRN (20:15)
[2022-02-11 21:26] LABS: CORD GAS ABE A -8.2; CORD GAS ABE V -6.4; CORD GAS HCO3 A 20.6 MEQ/L; CORD GAS HCO3 V 18.8 MEQ/L; CORD GAS O2 SAT V 63.9 %; CORD GAS PCO2 A 54.7 mmHg; CORD GAS PCO2 V 37.2 mmHg; CORD GAS PH A 7.194 UNITS; CORD GAS PH V 7.322 UNITS; CORD GAS PO2 A 10.4 mmHg; CORD GAS PO2 V 26.4 mmHg; CORD GAS SBC V 18.5 MEQ/L; CORD GAS TCO2 A 22.3 MEQ/L
[2022-02-11] MEDS: ACETAMINOPHEN 500 MG TAB PO PRN (21:47)
[2022-02-12 06:00] VITALS: BP 120/58
[2022-02-12 07:46] LABS: HEMATOCRIT 31.4 % (36.0-47.0); HEMOGLOBIN 10.2 g/dl (12.0-15.5); MEAN CORPUSCULAR HEMOGLOBIN 29.7 pg (27.0-33.0); MEAN CORPUSCULAR HGB CONC 32.5 g/dl (32.0-36.5); MEAN CORPUSCULAR VOLUME 91.3 fl (80.0-96.0); PLATELET COUNT, AUTOMATED 216 10^3/uL (150-450); RED BLOOD COUNT 3.44 10^6/uL (4.00-5.40); WHITE BLOOD COUNT 20.3 10^3/uL (4.0-10.0)
[2022-02-12] MEDS: ESCITALOPRAM OXALATE 10 MG TAB (LEXAPRO) PO SCH (08:49)
[2022-02-12] MEDS: PRENATAL VITAMINS CHEWABLE TABLET PO SCH (08:49)
[2022-02-12 18:00] VITALS: BP 115/60
[2022-02-12] MEDS: LURASIDONE 20 MG TAB (LATUDA) PO SCH (19:18)
[2022-02-13 05:59] VITALS: BP 99/56
[2022-02-13] MEDS: ESCITALOPRAM OXALATE 10 MG TAB (LEXAPRO) PO SCH (08:16)
[2022-02-13] MEDS: PRENATAL VITAMINS CHEWABLE TABLET PO SCH (08:17)
[2022-02-13] MEDS: DOCUSATE SODIUM 100MG CAPSULE PO PRN (08:17)
[2022-02-13] MEDS: ACETAMINOPHEN 500 MG TAB PO PRN ×2 (08:17→18:51)
[2022-02-13] MEDS ORDERED: MEASLES,MUMPS,RUBELLA VACCINE INJ (MMR-II) (90707) SC.IMMUN ONE (09:00)
[2022-02-13 17:49] VITALS: BP 118/67
[2022-02-13] MEDS: LURASIDONE 20 MG TAB (LATUDA) PO SCH (18:51)
[2022-02-14 06:00] VITALS: BP 117/63
[2022-02-14] MEDS: ESCITALOPRAM OXALATE 10 MG TAB (LEXAPRO) PO SCH (09:55)
[2022-02-14] MEDS: PRENATAL VITAMINS CHEWABLE TABLET PO SCH (09:55)
[2022-02-14] MEDS: DOCUSATE SODIUM 100MG CAPSULE PO PRN (09:55)
[2022-02-14] MEDS: ACETAMINOPHEN 500 MG TAB PO PRN (09:56)
[2022-02-14] MEDS ORDERED: ACET1TAB55 PO (14:08)
[2022-02-14] MEDS ORDERED: IBUP-1022 PO (14:08)
[2022-02-14] MEDS ORDERED: COLA100C5 PO (14:08)
== END 2022-02-14 14:54 | disposition home or self-care (01) | DRG 807 ==
LOC: M LDO 15:37 → M LDI 16:47 → M OBS 02-11 22:29
PROVIDERS: ADMIT Obstetrics & Gynecology; ATTEND Obstetrics & Gynecology
PROC: 10E0XZZ Delivery of Products of Conception, External Approach (ICD-10-PCS; principal; 2022-02-11)
PROC: 0HQ9XZZ Repair Perineum Skin, External Approach (ICD-10-PCS; 2022-02-11)
DX: O99.344 Other mental disorders complicating childbirth (principal); Z37.0 Single live birth; F32.A Depression, unspecified; Z3A.40 40 weeks gestation of pregnancy; Z79.899 Other long term (current) drug therapy; Z88.8 Allergy status to other drugs, medicaments and biological substances; O76 Abnormality in fetal heart rate and rhythm complicating labor and delivery; O70.1 Second degree perineal laceration during delivery; O69.81X0 Labor and delivery complicated by cord around neck, without compression, not applicable or unspecified